=== PATIENT | female | born 1950 | race Caucasian/White ===

== ENCOUNTER → 2016-09-18 | Day surgery (SDC) | payer OTHER ==
[~2016-09-18] MED LIST: ACETAMINOPHEN/HYDROcodone 325 MG/5 MG TAB ONE; BUPIVACAINE HCL PF 0.25% 30 ML VIAL ONE; ESTR0.5T PO; KETOROLAC TROMETHAMINE 30 MG/ML (IVP) VIAL IV PUSH ONE; LACTATED RINGER'S 1000 ML INJ 1,000 ML ONE; LOVA20TA PO; MIDAZOLAM HCL 2 MG/2 ML VIAL ONE; ONDANSETRON HCL 4 MG/2 ML VIAL IV PUSH ONE; PROPOFOL 200 MG/20 ML AMP IV ONE; TRIA37.5 PO; ceFAZolin 2 GM PREMIX 50 ML ONE
--- NOTE | 2016-09-19 15:04 | MP ---
cc: CARLITO LOO DATE OF SURGERY: 09/18/2016 PREOPERATIVE DIAGNOSIS Right hallux abductovalgus with painful bunion. POSTOPERATIVE DIAGNOSIS Right hallux abductovalgus with painful bunion. PROCEDURE PERFORMED Right first metatarsal osteotomy. MATERIALS USED [employer] Dart-Fire screws, x1 3.0, x1 2.5. SPECIMEN None. ESTIMATED BLOOD LOSS Less than 30 mL. COMPLICATIONS None. ANESTHESIA General with local 0.25% Marcaine plain, 20 cc. TOURNIQUET TIME Approximate tourniquet time 35 minutes with a setting of 215 mmHg about the patient's right ankle. DISPOSITION PACU then DC home once stable per same-day surgery criteria. CONDITION Stable. JUSTIFICATION FOR PROCEDURE This is a pleasant 56-year-old female with worsening right foot pain. We tried conservative measures which failed. We devised a plan to move forward with first metatarsal osteotomy for correction of the hallux abductovalgus. No guarantees were given or implied regarding the outcome. The patient understood burning, numbness, stiffness, possible painful hardware. PROCEDURE IN DETAIL Under mild sedation the patient was brought into the operating room, placed on the operating room table in the supine position. Following the induction of general anesthesia, local anesthesia was obtained about the forefoot utilizing standard block fashion. The right foot was then scrubbed, prepped and draped in the usual aseptic fashion. The foot was elevated, exsanguinated and the previously placed mid-calf tourniquet was inflated at 215 mmHg. An incision was made over the dorsomedial aspect of the first MPJ just at the mid metatarsal portion of the first. Sharp and blunt dissection was carried down deep to the neurovascular bundle. The extensor hallucis longus was retracted medially. Sharp and blunt dissection was carried down to the level of the first interspace utilizing a 15 blade. The conjoined tendon and lateral capsule was then released. Next, an L-shaped medial capsulotomy was performed revealing a prominent dorsomedial eminence. Minimal arthritic findings seen. The medial eminence was then transected being careful to maintain the sagittal groove. Next, an offset "V" osteotomy was performed with a longer dorsal arm, shorter plantar arm, and transposed laterally 4 mm and fixated utilizing x2 cannulated Dart-Fire titanium [employer] screws, one distal being 3.0 x 16, and one 2.5 x 14 more proximal. There was noted to be compression across the osteotomy site and correction of the hallux abductovalgus. The prominent redundant proximal shelf was transected to a smooth bony contour. Utilizing fluoroscopy the fixation construct was visualized and there was noted to be no gapping, adequate reduction of deformity with screws in place. The wound was flushed with copious amounts of normal saline. The patient then received additional local proximal to the first metatarsal. The capsule and periosteal layer was closed utilizing 3-0 Monocryl. Skin was closed utilizing nylon. Upon relieving the tourniquet there was a prompt hyperemic response to all digits without any delayed capillary fill time. A bulky bandage was placed. The patient was positioned within a controlled ankle motion boot. The patient was transferred from OR to PACU with all vital signs stable. PLAN OF ACTIVITY She is heel full weight bear to tolerance. She will ice and elevate. I will see the patient in 3-5 days. WILLIAM Reeder/ETIENNE /1:49 PM /2:58 PM
== END | disposition home or self-care (01) ==
LOC: ESDC 11:01
PROVIDERS: ATTEND Podiatrist Foot & Ankle Surgery
DX: M20.11 Hallux valgus (acquired), right foot (principal)
CPT/HCPCS: 01480; 28296; 73630; 76000; C1713; J0690; J1885; J2250; J2405; J3010; J7120

== ENCOUNTER → 2016-11-21 | Outpatient (CLI) | payer OTHER ==
[~2016-11-21] MED LIST changes: -ACETAMINOPHEN/HYDROcodone 325 MG/5 MG TAB ONE; -BUPIVACAINE HCL PF 0.25% 30 ML VIAL ONE; -KETOROLAC TROMETHAMINE 30 MG/ML (IVP) VIAL IV PUSH ONE; -LACTATED RINGER'S 1000 ML INJ 1,000 ML ONE; -MIDAZOLAM HCL 2 MG/2 ML VIAL ONE; -ONDANSETRON HCL 4 MG/2 ML VIAL IV PUSH ONE; -PROPOFOL 200 MG/20 ML AMP IV ONE; -ceFAZolin 2 GM PREMIX 50 ML ONE
== END ==
LOC: CLAB 08:27
PROVIDERS: ATTEND Family Medicine
DX: Z00.00 Encounter for general adult medical examination without abnormal findings (principal)
CPT/HCPCS: 36415; 86803

== ENCOUNTER → 2017-07-30 | Outpatient (CLI) | payer OTHER ==
[2017-07-30 08:05] LABS: AUTOMATED NEUTROPHIL # 5.7 TH/MM3 (1.8-7.7); BASOPHIL # 0.1 TH/MM3 (0-0.2); BASOPHIL % 0.6 % (0.0-2.0); EOSINOPHIL # 0.1 TH/MM3 (0-0.4); EOSINOPHIL % 1.1 % (0.0-4.0); HEMOGLOBIN 14.4 GM/DL (11.6-15.3); LYMPH % 30.7 % (9.0-44.0); LYMPHOCYTE # 2.9 TH/MM3 (1.0-4.8); MEAN CELL VOLUME 83.2 FL (80.0-100.0); MEAN CORPUSCULAR HEMOGLOBIN 29.2 PG (27.0-34.0); MEAN CORPUSCULAR HGB CONC 35.1 % (32.0-36.0); MEAN PLATELET VOLUME 8.5 FL (7.0-11.0); MONO % 6.7 % (0.0-8.0); MONOCYTE # 0.6 TH/MM3 (0-0.9); NEUT % 60.9 % (16.0-70.0); PLATELET COUNT 293 TH/MM3 (150-450); RED BLOOD COUNT 4.93 MIL/MM3 (4.00-5.30); RED CELL DISTRIBUTION WIDTH 13.5 % (11.6-17.2); WHITE BLOOD COUNT 9.3 TH/MM3 (4.0-11.0)
[2017-07-30 08:22] LABS: ALT (GPT) 27 U/L (10-53); AST (GOT) 13 U/L (15-37); BICARBONATE 31.2 MEQ/L (21.0-32.0); BLOOD UREA NITROGEN 14 MG/DL (7-18); CHLORIDE 100 MEQ/L (98-107); CHOLESTEROL 219 MG/DL (120-200); DIRECT BILIRUBIN ADULT 0.1 MG/DL (0.0-0.2); GLOMERULAR FILTRATION RATE 62 ML/MIN (>89); GLUCOSE,RANDOM 99 MG/DL (74-106); SODIUM (NA) 140 MEQ/L (136-145); TRIGLYCERIDES 116 MG/DL (42-150)
[2017-07-30 08:32] LABS: ALKALINE PHOSPHATASE 98 U/L (45-117); CHOLESTEROL/ HDL RATIO 4.79 RATIO; HDL CHOLESTEROL 45.7 MG/DL (40.0-60.0); INDIRECT BILIRUBIN 0.3 MG/DL (0.0-0.8); LDL CHOLESTEROL 150 MG/DL (0-99); TOTAL BILIRUBIN ADULT 0.4 MG/DL (0.2-1.0); TOTAL PROTEIN 8.1 GM/DL (6.4-8.2)
[2017-07-30 16:19] LABS: HEMOGLOBIN A1C 5.9 % (4.3-6.0)
== END ==
LOC: CLAB 07:05
PROVIDERS: ATTEND Family Medicine
DX: Z00.00 Encounter for general adult medical examination without abnormal findings (principal)
CPT/HCPCS: 80048; 80061; 80076; 83036; 84443; 85025